=== PATIENT | female | born 1995 | race Caucasian/White ===

== ENCOUNTER 2017-06-02 23:09 | Emergency (ER) | payer BC, MEDICAID, OTHER ==
[2017-06-02] MEDS ORDERED: predniSONE 20 MG Tab PO ONE (23:45)
[2017-06-02] MEDS ORDERED: Loratadine 10 MG Tab PO ONE (23:45)
[2017-06-02] MEDS ORDERED: diphenhydrAMINE 50 MG Cap PO ONE (23:45)
[2017-06-02] MEDS ORDERED: EPINEPHrine 1 MG/ML SDV IM ONE (23:45)
--- NOTE | 2017-06-02 23:47 | EDM.PDOC ---
ED HPI GENERAL MEDICAL PROBLEM - General Chief Complaint: Skin Complaint Stated Complaint: POSS RASH Time Seen by Provider: 06/02/17 23:35 Source of Information: Reports: Patient, RN Notes Reviewed - History of Present Illness INITIAL COMMENTS - FREE TEXT/NARRATIVE: 21-year-old female comes in with severe skin itchiness that started last evening. This started primarily neck and upper back last evening. Has become much worse today and especially later this evening. She states now that she is basically itching all over except her face. No noticeable rash or hives. She states she has not eaten or been exposed to anything out of the ordinary. Has used Tide laundry detergent but his been using that for many years. When asked about what she had to eat yesterday prior to onset of itchiness she said she did have some mac & cheese out of a box. No known history of prior allergies. - Related Data Allergies Allergy/AdvReac Type Severity Reaction Status Date / Time hydrocodone AdvReac Vomiting Verified 06/29/15 22:28 Home Meds: Home Meds Desogestrel-Ethinyl Estradiol [Reclipsen 28 Day Tablet] 1 tab PO DAILY 09/02/14 [History] Dicyclomine HCl [Bentyl] 10 mg PO QID #10 capsule 06/29/15 [Rx] Prednisone [IJD: predniSONE] 40 mg PO WITHBREAKFAST #4 tab 06/03/17 [Rx] Past Medical History - Past Health History Medical/Surgical History: Denies Medical/Surgical History Gastrointestinal History: Reports: Irritable Bowel Syndrome Psychiatric History: Reports: Anxiety, Bipolar, Depression Other Dermatologic History: Vertiligo - Past Surgical History GI Surgical History: Reports: Cholecystectomy Social & Family History - Tobacco Use Smoking Status *Q: Never Smoker Second Hand Smoke Exposure: No - Caffeine Use Caffeine Use: Reports: None - Alcohol Use Days Per Week of Alcohol Use: 0 - Recreational Drug Use Recreational Drug Use: No ED ROS GENERAL - Review of Systems Review Of Systems: See Below Constitutional: Denies: Fever, Chills HEENT: Denies: Eye Discharge, Throat Pain, Throat Swelling Respiratory: Denies: Shortness of Breath, Wheezing Cardiovascular: Denies: Chest Pain GI/Abdominal: Denies: Nausea, Vomiting Musculoskeletal: Reports: No Symptoms Skin: Reports: Pruritis. Denies: Rash Neurological: Reports: No Symptoms ED EXAM, SKIN/RASH Exam: See Below General Appearance: Alert, Moderate Distress (Scratching most of the time while I was in the room with history and exam) Eye Exam: Bilateral Eye: PERRL Ears: Normal External Exam Nose: Normal Inspection Throat/Mouth: Normal Inspection, Normal Oropharynx Head: No: Facial Swelling Neck: Supple, Full Range of Motion Respiratory/Chest: No Respiratory Distress, Lungs Clear. No: Wheezing Cardiovascular: Regular Rate, Rhythm Extremities: Normal Inspection, Normal Range of Motion Neurological: Alert, Oriented, No Motor/Sensory Deficits Skin: Warm, Dry, Normal Color, Rash (She has a small amount of redness to the left dorsal wrist, skin otherwise clear at this time) Course - Vital Signs Last Recorded V/S: Last Vital Signs Temp 98.6 F 06/03/17 00:07 Pulse 83 06/02/17 23:21 Resp 16 06/03/17 00:07 BP 146/102 H 06/03/17 00:07 Pulse Ox 100 06/03/17 00:07 - Orders/Labs/Meds Meds: Medications Discontinued Medications Generic Name Dose Route Start Last Admin Trade Name Nicolasa PRN Reason Stop Dose Admin Diphenhydramine HCl 50 mg 06/02/17 23:45 06/03/17 00:08 Benadryl PO 06/02/17 23:46 50 mg ONETIME ONE Administration Epinephrine HCl 0.2 mg 06/02/17 23:45 06/03/17 00:10 Adrenalin IM 06/02/17 23:46 0.2 mg ONETIME ONE Administration Loratadine 10 mg 06/02/17 23:45 06/03/17 00:08 Claritin PO 06/02/17 23:46 10 mg ONETIME ONE Administration Prednisone 40 mg 06/02/17 23:45 06/03/17 00:08 Prednisone PO 06/02/17 23:46 40 mg ONETIME ONE Administration Departure - Departure Time of Disposition: 00:12 Disposition: Home, Self-Care 01 Condition: Fair Clinical Impression: Allergic reaction Qualifiers: Encounter type: initial encounter Qualified Code(s): T78.40XA - Allergy, unspecified, initial encounter - Discharge Information Prescriptions: Prednisone [IJD: predniSONE] 40 mg PO WITHBREAKFAST #4 tab Referrals: Stefani Fuentes EXPRESSIVE ART THERAPIST [Primary Care Provider] - Forms: ED Department Discharge Additional Instructions: You have been given Benadryl 50 mg orally, Claritin 10 mg orally, prednisone 40 mg orally and also epinephrine 0.2 mg IM. Continue Claritin 10 mg per day until itchiness has completely resolved, continue prednisone for the next 4 days as prescribed. Follow-up clinic if not much better within 2-3 days as expected, return to ED as needed.
[2017-06-03 00:25] VITALS: BP 146/102
[2017-06-03] MEDS ORDERED: LORazepam 0.5 MG Tab PO ONE (00:38)
[2017-06-03] MEDS ORDERED: EPINEPHrine 1 MG/ML SDV IM ONE (00:38)
== END 2017-06-03 00:58 | disposition home or self-care (01) ==
LOC: JD.ED 23:09
DX: T78.40XA Allergy, unspecified, initial encounter (principal); Z88.5 Allergy status to narcotic agent
CPT/HCPCS: 96372; 99283; A9270; J0171; 99284

== ENCOUNTER 2017-07-02 15:00 | Emergency (ER) | payer MEDICAID ==
[2017-07-02 15:19] VITALS: BP 153/105
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
[2017-07-02 17:09] LABS: ACETAMINOPHEN 0 ug/mL (10-30)
== END 2017-07-02 18:45 ==
LOC: EEVIPCON 15:00 → JD.ED 15:00
DX: R45.851 Suicidal ideations (principal); Z88.5 Allergy status to narcotic agent; Z79.899 Other long term (current) drug therapy
CPT/HCPCS: 36415; 80053; 80306; 81001; 84443; 84703; 85025; 99285; G0480; 99284

== ENCOUNTER 2017-08-04 06:34 | Emergency (ER) | payer MEDICAID ==
[2017-08-04 06:48] VITALS: BP 136/96
[2017-08-04] MEDS ORDERED: Ondansetron 4 MG/2 ML SDV IVPUSH ONE (07:24)
[2017-08-04] MEDS ORDERED: Sodium Chloride 0.9% 10 ML Syringe FLUSH PRN (07:24)
[2017-08-04] MEDS ORDERED: Ketorolac 30 MG/ML SDV IVPUSH ONE (07:24)
[2017-08-04] MEDS ORDERED: Sodium Chloride 0.9% 1,000 ML IV ONE ×2 (07:24→08:11)
[2017-08-04] MEDS ORDERED: Famotidine 20 MG/2 ML SDV IVPUSH ONE (07:24)
--- NOTE | 2017-08-04 07:50 | EDM.PDOC ---
ED HPI GENERAL MEDICAL PROBLEM - General Chief Complaint: Abdominal Pain Stated Complaint: ABDOMINAL PAIN Time Seen by Provider: 08/04/17 07:01 Source of Information: Reports: Patient History Limitations: Reports: No Limitations - History of Present Illness INITIAL COMMENTS - FREE TEXT/NARRATIVE: 21 y/o F with hx IBS presents with abdominal pain. States she's had diarrhea for about a week and a half. Also has vomiting that just started last night. Had about 4 episodes of vomiting, currently unable to tolerate PO fluids. Has diffuse abdominal cramping that comes and goes. Worse with eating. Worse with episodes of vomiting and diarrhea. No hematemesis or blood in the stool. No fever. No known exposure to contaminated food or water. No sick contacts. No recent travel. She was treated for chlamydia and bacterial vaginosis a couple of weeks ago, completed a course of flagyl for that. No cough/sore throat/ rhinorrhea. Middle Abdomen Pain Score (Numeric/FACES): 10 - Related Data Allergies Allergy/AdvReac Type Severity Reaction Status Date / Time hydrocodone AdvReac Vomiting Verified 08/04/17 06:47 Home Meds: Home Meds Clindamycin 1% Gel. 1 dose TOP BID 07/02/17 [History] DULoxetine [Cymbalta] 120 mg PO DAILY 07/02/17 [History] Desogestrel-Ethinyl Estradiol [Juleber 28 Day Tablet] 1 tab PO ASDIRECTED [History] Hyoscyamine [Levsin] 0.125 mg PO QID 07/02/17 [History] Pantoprazole Sodium [Protonix] 40 mg PO DAILY 07/02/17 [History] Prazosin [Minpress] 5 mg PO BEDTIME 07/02/17 [History] Ondansetron [Zofran ODT] 4 mg PO Q6H PRN #20 tab.dis 08/04/17 [Rx] Past Medical History - Past Health History Medical/Surgical History: Denies Medical/Surgical History Gastrointestinal History: Reports: Irritable Bowel Syndrome Neurological History: Reports: Headaches, Chronic Psychiatric History: Reports: Anxiety, Bipolar, Depression Other Dermatologic History: Vertiligo - Past Surgical History GI Surgical History: Reports: Cholecystectomy Social & Family History - Family History Cardiac: Reports: CAD, [place] Neurological: Reports: Other (See Below) Other Neurological Family History: Mother from brain aneurysm - Tobacco Use Smoking Status *Q: Never Smoker Second Hand Smoke Exposure: No - Caffeine Use Caffeine Use: Reports: None - Alcohol Use Days Per Week of Alcohol Use: 0 - Recreational Drug Use Recreational Drug Use: No ED ROS GENERAL - Review of Systems Review Of Systems: See Below Constitutional: Denies: Fever HEENT: Reports: No Symptoms Respiratory: Denies: Shortness of Breath Cardiovascular: Denies: Chest Pain Endocrine: Reports: No Symptoms GI/Abdominal: Reports: Abdominal Pain, Diarrhea, Nausea, Vomiting : Denies: Dysuria Musculoskeletal: Reports: No Symptoms Neurological: Reports: No Symptoms ED EXAM, GI/ABD - Physical Exam Exam: See Below Exam Limited By: No Limitations General Appearance: Alert, WD/WN, No Apparent Distress Eyes: Bilateral: Normal Appearance Ears: Normal External Exam Nose: Normal Inspection Throat/Mouth: Normal Inspection, Normal Oropharynx, Normal Voice Head: Atraumatic, Normocephalic Neck: Normal Inspection, Supple, Non-Tender Respiratory/Chest: No Respiratory Distress, Lungs Clear, Normal Breath Sounds Cardiovascular: Normal Peripheral Pulses, Regular Rate, Rhythm, No Murmur GI/Abdominal Exam: Soft, Non-Tender, No Distention. No: Rebound Back Exam: Normal Inspection. No: CVA Tenderness (L), CVA Tenderness (R) Extremities: Normal Inspection Neurological: Alert, Oriented, Normal Cognition Psychiatric: Normal Affect, Normal Mood Skin Exam: Warm, Dry, Intact, Normal Color, No Rash Course - Vital Signs Last Recorded V/S: Last Vital Signs Temp 36.9 C 08/04/17 06:42 Pulse 102 H 08/04/17 06:42 Resp 16 08/04/17 06:42 BP 136/96 H 08/04/17 06:42 Pulse Ox 97 08/04/17 06:42 - Orders/Labs/Meds Orders: Active Orders 24 hr Category Date Time Status Peripheral IV Care [RC] . DIRECTED Care 08/04/17 07:24 Active Peripheral IV Insertion Adult [OM.PC] Routine Oth 08/04/17 07:24 Ordered Labs: Laboratory Tests 08/04/17 08/04/17 08/04/17 Range/Units 07:11 07:30 07:35 WBC 7.78 (3.98-10.04) K/mm3 RBC 4.81 (3.98-5.22) M/mm3 Hgb 13.1 (11.2-15.7) gm/L Hct 40.0 (34.1-44.9) % MCV 83.2 (79.4-94.8) fl MCH 27.2 (25.6-32.2) pg MCHC 32.8 (32.2-35.5) g/dl RDW Std Deviation 43.4 (36.4-46.3) fL Plt Count 261 (182-369) K/mm3 MPV 9.2 L (9.4-12.3) fl Neut % (Auto) 75.4 H (34.0-71.1) % Lymph % (Auto) 14.9 L (19.3-51.7) % [place] % (Auto) 8.5 (4.7-12.5) % Eos % (Auto) 1.0 (0.7-5.8) Baso % (Auto) 0.1 (0.1-1.2) % Neut # (Auto) 5.86 (1.56-6.13) K/mm3 Lymph # (Auto) 1.16 L (1.18-3.74) K/mm3 [place] # (Auto) 0.66 H (0.24-0.36) K/mm3 Eos # (Auto) 0.08 (0.04-0.36) K/mm3 Baso # (Auto) 0.01 (0.01-0.08) K/mm3 Sodium (136-145) mEq/L Potassium (3.5-5.1) mEq/L Chloride (98-107) mEq/L Carbon Dioxide (21-32) mEq/L Anion Gap (5-15) BUN (7-18) mg/dL Creatinine (0.55-1.02) mg/dL Est Cr Clr Drug Dosing mL/min Estimated GFR (MDRD) (>60) mL/min BUN/Creatinine Ratio (14-18) Glucose (74-106) mg/dL Calcium (8.5-10.1) mg/dL Total Bilirubin (0.2-1.0) mg/dL AST (15-37) U/L ALT (14-59) U/L Alkaline Phosphatase (46-116) U/L Total Protein (6.4-8.2) g/dl Albumin (3.4-5.0) g/dl Globulin gm/dL Albumin/Globulin Ratio (1-2) Lipase (73-393) U/L Urine Color Yellow (Yellow) Urine Appearance Slt cloudy H (Clear) Urine pH 6.0 (5.0-8.0) Ur Specific [place] > or = 1.030 (1.005-1.030) Urine Protein Negative (Negative) Urine Glucose (UA) Negative (Negative) Urine Ketones Negative (Negative) Urine Occult Blood Negative (Negative) Urine Nitrite Negative (Negative) Urine Bilirubin Negative (Negative) Urine Urobilinogen 0.2 (0.2-1.0) Ur Leukocyte Esterase Trace H (Negative) Urine RBC Not seen (0-5) /hpf Urine WBC 0-5 (0-5) /hpf Ur Epithelial Cells 5-10 H (0-5) /hpf Urine Bacteria Few (FEW) /hpf Urine Mucus Few (FEW) /hpf Urine HCG, Qual Negative (NEGATIVE) 08/04/17 Range/Units 07:35 WBC (3.98-10.04) K/mm3 RBC (3.98-5.22) M/mm3 Hgb (11.2-15.7) gm/L Hct (34.1-44.9) % MCV (79.4-94.8) fl MCH (25.6-32.2) pg MCHC (32.2-35.5) g/dl RDW Std Deviation (36.4-46.3) fL Plt Count (182-369) K/mm3 MPV (9.4-12.3) fl Neut % (Auto) (34.0-71.1) % Lymph % (Auto) (19.3-51.7) % [place] % (Auto) (4.7-12.5) % Eos % (Auto) (0.7-5.8) Baso % (Auto) (0.1-1.2) % Neut # (Auto) (1.56-6.13) K/mm3 Lymph # (Auto) (1.18-3.74) K/mm3 [place] # (Auto) (0.24-0.36) K/mm3 Eos # (Auto) (0.04-0.36) K/mm3 Baso # (Auto) (0.01-0.08) K/mm3 Sodium 141 (136-145) mEq/L Potassium 3.5 (3.5-5.1) mEq/L Chloride 106 (98-107) mEq/L Carbon Dioxide 22 (21-32) mEq/L Anion Gap 16.5 H (5-15) BUN 13 (7-18) mg/dL Creatinine 0.9 (0.55-1.02) mg/dL Est Cr Clr Drug Dosing 80.42 mL/min Estimated GFR (MDRD) > 60 (>60) mL/min BUN/Creatinine Ratio 14.4 (14-18) Glucose 90 (74-106) mg/dL Calcium 8.4 L (8.5-10.1) mg/dL Total Bilirubin 0.3 (0.2-1.0) mg/dL AST 16 (15-37) U/L ALT 17 (14-59) U/L Alkaline Phosphatase 76 (46-116) U/L Total Protein 7.0 (6.4-8.2) g/dl Albumin 2.9 L (3.4-5.0) g/dl Globulin 4.1 gm/dL Albumin/Globulin Ratio 0.7 L (1-2) Lipase 198 (73-393) U/L Urine Color (Yellow) Urine Appearance (Clear) Urine pH (5.0-8.0) Ur Specific [place] (1.005-1.030) Urine Protein (Negative) Urine Glucose (UA) (Negative) Urine Ketones (Negative) Urine Occult Blood (Negative) Urine Nitrite (Negative) Urine Bilirubin (Negative) Urine Urobilinogen (0.2-1.0) Ur Leukocyte Esterase (Negative) Urine RBC (0-5) /hpf Urine WBC (0-5) /hpf Ur Epithelial Cells (0-5) /hpf Urine Bacteria (FEW) /hpf Urine Mucus (FEW) /hpf Urine HCG, Qual (NEGATIVE) Meds: Medications Discontinued Medications Generic Name Dose Route Start Last Admin Trade Name Freq PRN Reason Stop Dose Admin Famotidine 40 mg 08/04/17 07:24 08/04/17 07:50 Pepcid IVPUSH 08/04/17 07:25 40 mg ONETIME ONE Administration Sodium Chloride 1,000 mls @ 1,000 mls/hr 08/04/17 07:24 08/04/17 07:48 Normal Saline IV 08/04/17 08:23 1,000 mls/hr ONETIME ONE Administration Sodium Chloride 1,000 mls @ 1,000 mls/hr 08/04/17 08:11 08/04/17 09:05 Normal Saline IV 08/04/17 09:10 Not Given ONETIME ONE Ketorolac Tromethamine 30 mg 08/04/17 07:24 08/04/17 07:48 Toradol IVPUSH 08/04/17 07:25 30 mg ONETIME ONE Administration Ondansetron HCl 4 mg 08/04/17 07:24 08/04/17 07:49 Zofran IVPUSH 08/04/17 07:25 4 mg ONETIME ONE Administration Sodium Chloride 10 ml 08/04/17 07:24 08/04/17 07:52 Saline Flush FLUSH 10 ml ASDIRECTED PRN Administration Keep Vein Open - Re-Assessments/Exams Free Text/Narrative Re-Assessment/Exam: 08/04/17 12:05 Labs normal. UA concentrated but not infected. Feels better after zofran and fluids. Will dc home, discussed return precautions. Departure - Departure Time of Disposition: 08:42 Disposition: Home, Self-Care 01 Clinical Impression: Vomiting Qualifiers: Vomiting type: unspecified Vomiting Intractability: non-intractable Nausea presence: with nausea Qualified Code(s): R11.2 - Nausea with vomiting, unspecified Diarrhea Qualifiers: Diarrhea type: presumed infectious Qualified Code(s): R19.7 - Diarrhea, unspecified - Discharge Information Prescriptions: Ondansetron [Zofran ODT] 4 mg PO Q6H PRN #20 tab.dis PRN Reason: Nausea Instructions: Vomiting, Adult, Diarrhea, Adult, [id number] Referrals: Stefani Fuentes NP [Primary Care Provider] - Forms: ED Department Discharge Additional Instructions: 1. Take zofran (ondansetron) as prescribed for nausea 2. Take over the counter loperamide for diarrhea 3. Drink plenty of fluids. Clear liquid diet until you're feeling better. Then try a very bland diet. 4. Follow up with your primary care provider this week if not better 5. Return to the ED if worse, especially if you have fever with temp 101 or higher, vomiting repeatedly without keeping liquids down, severe abdominal pain , or other concerning symptoms - My Orders Last 24 Hours: My Active Orders 08/04/17 07:24 Peripheral IV Care [RC] . DIRECTED Peripheral IV Insertion Adult [OM.PC] Routine - Assessment/Plan Last 24 Hours: My Active Orders 08/04/17 07:24 Peripheral IV Care [RC] . DIRECTED Peripheral IV Insertion Adult [OM.PC] Routine
== END 2017-08-04 09:06 | disposition home or self-care (01) ==
LOC: JD.ED 06:34
DX: R11.2 Nausea with vomiting, unspecified (principal); R19.7 Diarrhea, unspecified; F31.9 Bipolar disorder, unspecified; Z88.5 Allergy status to narcotic agent; Z79.899 Other long term (current) drug therapy; Z90.49 Acquired absence of other specified parts of digestive tract
CPT/HCPCS: 36415; 80053; 81001; 81025; 83690; 85025; 96361; 96374; 96375; 99284; J1885; J2405; J7040; J7050

== ENCOUNTER 2017-08-04 13:50 | Emergency (ER) | payer MEDICAID ==
[2017-08-04 14:01] VITALS: BP 145/87
[2017-08-04] MEDS ORDERED: LORazepam 2 MG/ML SDV IVPUSH ONE (15:00)
[2017-08-04] MEDS ORDERED: Sodium Chloride 0.9% 1,000 ML IV ONE (15:00)
[2017-08-04] MEDS ORDERED: Ondansetron 4 MG/2 ML SDV IVPUSH ONE (15:00)
[2017-08-04] MEDS ORDERED: Ketorolac 30 MG/ML SDV IVPUSH ONE (15:00)
--- NOTE | 2017-08-04 15:03 | EDM.PDOC ---
ED HPI GENERAL MEDICAL PROBLEM - General Chief Complaint: Abdominal Pain Stated Complaint: ABDOMINAL PAIN Time Seen by Provider: 08/04/17 14:09 Source of Information: Reports: Patient History Limitations: Reports: No Limitations - History of Present Illness INITIAL COMMENTS - FREE TEXT/NARRATIVE: 21 y/o F with hx IBS, depression, anxiety returns to the ED with vomiting and abdominal pain. Seen here this morning for diarrhea x several days and vomiting x 1 day. No hematemesis or blood in the stool. Intermittent abdominal cramping. Abd pain was minimal during her earlier ED stay. Had reassuring labs and felt better after meds/fluids so was discharged. Returns with worsening abdominal pain. States her entire abdomen is cramping and she has severe pain. Nauseated, no further vomiting. Was able to keep gatorade down. No fever. Feels shaky and has numbness around her mouth and hands. Abdomen Pain Score (Numeric/FACES): 10 - Related Data Allergies Allergy/AdvReac Type Severity Reaction Status Date / Time hydrocodone AdvReac Vomiting Verified 08/04/17 06:47 Home Meds: Home Meds Clindamycin 1% Gel. 1 dose TOP BID 07/02/17 [History] DULoxetine [Cymbalta] 120 mg PO DAILY 07/02/17 [History] Desogestrel-Ethinyl Estradiol [Juleber 28 Day Tablet] 1 tab PO ASDIRECTED [History] Hyoscyamine [Levsin] 0.125 mg PO QID 07/02/17 [History] Pantoprazole Sodium [Protonix] 40 mg PO DAILY 07/02/17 [History] Prazosin [Minpress] 5 mg PO BEDTIME 07/02/17 [History] Ondansetron [Zofran ODT] 4 mg PO Q6H PRN #20 tab.dis 08/04/17 [Rx] Past Medical History - Past Health History Medical/Surgical History: Denies Medical/Surgical History Gastrointestinal History: Reports: Irritable Bowel Syndrome Neurological History: Reports: Headaches, Chronic Psychiatric History: Reports: Anxiety, Bipolar, Depression Other Dermatologic History: Vertiligo - Past Surgical History GI Surgical History: Reports: Cholecystectomy Social & Family History - Family History Cardiac: Reports: CAD, [place] Neurological: Reports: Other (See Below) Other Neurological Family History: Mother from brain aneurysm - Tobacco Use Smoking Status *Q: Never Smoker Second Hand Smoke Exposure: No - Caffeine Use Caffeine Use: Reports: None - Alcohol Use Days Per Week of Alcohol Use: 0 - Recreational Drug Use Recreational Drug Use: No ED ROS GENERAL - Review of Systems Review Of Systems: See Below Constitutional: Reports: Malaise, Weakness, Fatigue. Denies: Fever HEENT: Reports: No Symptoms Respiratory: Denies: Shortness of Breath Cardiovascular: Denies: Chest Pain Endocrine: Reports: Fatigue GI/Abdominal: Reports: Abdominal Pain : Denies: Dysuria Musculoskeletal: Reports: No Symptoms Skin: Reports: No Symptoms Neurological: Reports: Paresthesia ED EXAM, GI/ABD - Physical Exam Exam: See Below Exam Limited By: No Limitations General Appearance: Alert, Anxious, Moderate Distress, Other (hyperventilating) Eyes: Bilateral: Normal Appearance Ears: Normal External Exam Nose: Normal Inspection Throat/Mouth: Normal Inspection, Normal Oropharynx, Normal Voice Head: Atraumatic, Normocephalic Neck: Normal Inspection, Supple, Non-Tender Respiratory/Chest: No Respiratory Distress, Lungs Clear, Normal Breath Sounds, No Accessory Muscle Use, Chest Non-Tender Cardiovascular: Normal Peripheral Pulses, Regular Rate, Rhythm, No Murmur GI/Abdominal Exam: Soft, Other (diffusely tender, no rebound/guarding) Back Exam: Normal Inspection. No: CVA Tenderness (L), CVA Tenderness (R) Extremities: Normal Inspection Neurological: Alert, Oriented, Normal Cognition, No Motor/Sensory Deficits Psychiatric: Anxious, Tearful Skin Exam: Warm, Dry, Intact, Normal Color, No Rash Course - Vital Signs Last Recorded V/S: Last Vital Signs Temp 37.0 C 08/04/17 14:01 Pulse 108 H 08/04/17 14:01 Resp 20 08/04/17 14:01 BP 145/87 H 08/04/17 14:01 Pulse Ox 100 08/04/17 14:01 - Orders/Labs/Meds Orders: Active Orders 24 hr Category Date Time Status Abdomen Pelvis w Cont [CT] Stat Exams 08/04/17 15:00 Taken Acetaminophen [Tylenol] Med 08/04/17 17:19 Active 650 mg PO Q6H PRN Sodium Chloride 0.9% [Saline Flush] Med 08/04/17 15:55 Active 10 ml FLUSH ONETIME PRN Medication Orders Acetaminophen (Tylenol) 650 mg PO Q6H PRN PRN Reason: Pain Sodium Chloride (Saline Flush) 10 ml FLUSH ONETIME PRN PRN Reason: IV FLUSH Last Admin: 08/04/17 16:06 Dose: 10 ml Meds: Medications Generic Name Dose Route Start Last Admin Trade Name Freq PRN Reason Stop Dose Admin Acetaminophen 650 mg 08/04/17 17:19 Tylenol PO Q6H PRN Pain Sodium Chloride 10 ml 08/04/17 15:55 08/04/17 16:06 Saline Flush FLUSH 10 ml ONETIME PRN Administration IV FLUSH Discontinued Medications Generic Name Dose Route Start Last Admin Trade Name Freq PRN Reason Stop Dose Admin Dicyclomine HCl 40 mg 08/04/17 17:19 Bentyl PO 08/04/17 17:20 ONETIME ONE Sodium Chloride 1,000 mls @ 1,000 mls/hr 08/04/17 15:00 08/04/17 15:25 Normal Saline IV 08/04/17 15:59 1,000 mls/hr ONETIME ONE Administration Iopamidol 100 ml 08/04/17 15:55 08/04/17 16:06 Isovue-300 (61%) IVPUSH 08/04/17 15:56 100 ml ONETIME ONE Administration Ketorolac Tromethamine 30 mg 08/04/17 15:00 08/04/17 15:21 Toradol IVPUSH 08/04/17 15:01 30 mg ONETIME ONE Administration Lorazepam 1 mg 08/04/17 15:00 08/04/17 15:15 Ativan IVPUSH 08/04/17 15:01 1 mg ONETIME ONE Administration Ondansetron HCl 4 mg 08/04/17 15:00 08/04/17 15:18 Zofran IVPUSH 08/04/17 15:01 4 mg ONETIME ONE Administration - Re-Assessments/Exams Free Text/Narrative Re-Assessment/Exam: 08/04/17 15:52 Labs including CBC, chemistry, LFT's all normal this morning. UA also neg for infection. Urine HCG was neg. No indication to repeat labs given she was discharged just a few hours ago. IV meds ordered. Will order CT scan of abdomen/ pelvis given dramatic increase in pain. 08/04/17 17:24 CT a/p negative. Feeling better after meds. No vomiting here. Will discharge. Discussed return precautions. Instymed rx for zofran provided. Departure - Departure Time of Disposition: 17:20 Disposition: Home, Self-Care 01 Clinical Impression: Abdominal pain Nausea & vomiting Qualifiers: Vomiting type: unspecified Vomiting Intractability: non-intractable Qualified Code(s): R11.2 - Nausea with vomiting, unspecified Diarrhea Qualifiers: Diarrhea type: presumed infectious Qualified Code(s): R19.7 - Diarrhea, unspecified - Discharge Information Instructions: Diarrhea, Adult, Nausea and Vomiting, Adult, [id number], Abdominal Pain, Adult, [id number] Referrals: Stefani Fuentes CONTINUOUS MINING OPERATOR [Primary Care Provider] - Forms: ED Department Discharge Additional Instructions: 1. Drink plenty of fluids. 2. Take ondansetron (zofran) as prescribed for nausea 3. Take acetaminophen (Tylenol) as needed for pain 4. Take over the counter loperamide as needed for diarrhea 5. Take bentyl as needed for gas/bloating/abdominal pain 6. Follow up with your regular provider tomorrow 7. Return to the ED if you have severe pain, fever, or other concerning symptoms - My Orders Last 24 Hours: My Active Orders 08/04/17 15:00 Abdomen Pelvis w Cont [CT] Stat 08/04/17 15:55 Sodium Chloride 0.9% [Saline Flush] 10 ml FLUSH ONETIME PRN 08/04/17 17:19 Acetaminophen [Tylenol] 650 mg PO Q6H PRN - Assessment/Plan Last 24 Hours: My Active Orders 08/04/17 15:00 Abdomen Pelvis w Cont [CT] Stat 08/04/17 15:55 Sodium Chloride 0.9% [Saline Flush] 10 ml FLUSH ONETIME PRN 08/04/17 17:19 Acetaminophen [Tylenol] 650 mg PO Q6H PRN
[2017-08-04] MEDS ORDERED: Sodium Chloride 0.9% 10 ML Syringe FLUSH PRN (15:55)
[2017-08-04] MEDS ORDERED: Iopamidol 612 MG/ML 100 ML Bottle IVPUSH ONE (15:55)
[2017-08-04] MEDS ORDERED: Dicyclomine 10 MG Cap PO ONE (17:19)
[2017-08-04] MEDS ORDERED: Acetaminophen 325 MG Tab PO PRN (17:19)
--- NOTE | 2017-08-05 09:12 | CT ---
CT abdomen and pelvis Technique: Multiple axial sections were obtained from above the dome of the diaphragm inferiorly through the pubic symphysis. Intravenous contrast was utilized. No oral contrast has been given which diminishes details of bowel processes and processes around the bowel. Delayed images were also obtained through the abdomen and pelvis. Comparison: Prior CT abdomen and pelvis exam of 10/28/15. Findings: Visualized lung bases show nothing acute. Liver shows no focal parenchymal abnormality. Surgical clips are seen from prior cholecystectomy. Kidneys show symmetric contrast enhancement without hydronephrosis or mass. Pancreas appears within normal limits. Spleen appears within normal limits. Adrenal glands show no nodule. Aorta shows no aneurysmal dilatation. No retroperitoneal adenopathy is seen. No mesenteric abnormalities are appreciated. Appendix is believed to be seen and appears within normal limits. Multiple fluid-filled small bowel loops are seen as well as fluid within the right colon which can be seen normally. No pelvic mass or adenopathy is seen. No free fluid or inflammatory change is seen. Bone window settings were reviewed which appear within normal limits for the patient's age. Impression: 1. Nothing acute is appreciated on CT study of the abdomen and pelvis. Diagnostic code #2 I agree with preliminary report issued by [facility] ([facility] preliminary report dictated on 08/04/17, 5:35 PM Central Time)
== END 2017-08-04 17:30 | disposition home or self-care (01) ==
LOC: JD.ED 13:50
DX: R11.2 Nausea with vomiting, unspecified (principal); R19.7 Diarrhea, unspecified; R10.9 Unspecified abdominal pain; Z88.5 Allergy status to narcotic agent; Z79.899 Other long term (current) drug therapy; F31.9 Bipolar disorder, unspecified; Z90.49 Acquired absence of other specified parts of digestive tract
CPT/HCPCS: 36415; 74177; 80053; 81001; 81025; 83690; 85025; 96361; 96374; 96375; 99284; J1885; J2060; J2405; J7040; J7050; Q9967